=== PATIENT | female | born 1965 | race Caucasian/White ===

== ENCOUNTER 2021-09-08 14:13 | Inpatient (IN) | payer BC ==
[~2021-09-08 14:13] MED LIST: Iopamidol-370 76% 500 ML 1 ML ONE
[2021-09-08] MEDS ORDERED: Diltiazem 125 MG/25 ML ONE (14:34)
[2021-09-08] MEDS ORDERED: Magnesium 2 GM/50 ML BAG (IN WATER) ONE (15:12)
[2021-09-08 15:21] LABS: #Basophils 0.1 thou/uL (0.0-0.2); #Eosinphils 0.2 thou/uL (0.0-0.7); #Lymphocytes 1.9 thou/uL (1.20-3.40); #Monocytes 0.7 thou/uL (0.11-0.59); %Basophils 0.7 % (0.0-1.0); %Eosinophils 2.4 % (0.0-10.0); %Monocytes 8.1 % (0.0-10.0); %Neutrophils 67.7 % (42.0-75.0); Hemoglobin 15.7 g/dL (12.0-16.0); Mean Corpuscular HGB CONC 33.6 g/dL (32.0-36.0); Mean Corpuscular Volume 98.4 fL (78.0-98.0); Mean Platelet Volume 7.5 fL (7.4-10.4); Platelet Count 333 thou/uL (130-400); Red Blood Cell (RBC) Count 4.75 mill/uL (4.20-5.40); White Blood Cell (WBC) Count 8.8 thou/uL (4.8-10.8)
[2021-09-08 15:42] LABS: ALT (SGPT) 16 U/L (8-55); AST (SGOT) 16 U/L (5-34); Albumin 4.1 g/dL (3.5-5.0); Alkaline Phosphatase 49 U/L (40-110); Anion Gap 13 mmol/L (10-20); BUN (Urea Nitrogen) 17 mg/dL (9.8-20.1); Bilirubin, Total 0.7 mg/dL (0.2-1.2); Calc. Creatinine Clearance 0 mL/min (70-130); Calcium 9.6 mg/dL (7.8-10.44); Carbon Dioxide 23 mmol/L (22-29); Chloride 106 mmol/L (98-107); Globulin 3.1 g/dL (2.4-3.5); Glucose 94 mg/dL (70-105); Lipase 9 U/L (8-78); Potassium 4.3 mmol/L (3.5-5.1); Protein, Total 7.2 g/dL (6.0-8.3); Sodium 138 mmol/L (136-145)
[2021-09-08 16:03] LABS: CKMB 1.5 ng/mL (0-6.6)
[2021-09-08 16:19] LABS: SARS-CoV-2 NAA Rapid Test Not Detected (NotDetected)
[2021-09-08] MEDS ORDERED: Acetaminophen 325 MG TAB PO PRN (16:22)
[2021-09-08] MEDS ORDERED: Ondansetron PF 4 MG/2 ML Vial IVP PRN (16:22)
[2021-09-08] MEDS ORDERED: Enoxaparin Sodium 40 MG/0.4 ML SYRINGE SC SCH (16:30)
[2021-09-08] MEDS ORDERED: Aspirin 81 mg Enteric Coated Tablet PO SCH (16:30)
[2021-09-08] MEDS ORDERED: Nicotine 21 MG PATCH TD SCH (17:00)
[2021-09-08] MEDS ORDERED: Diltiazem 125 MG in Sodium Chloride 0.9% 100 ML IVPB SCH (17:00)
[2021-09-08 17:24] LABS: Acetaminophen Less than 6.0 mcg/mL (10.0-30.0); Alcohol Less than 10 mg/dL (Less than 10); Salicylate Less than 8.0 mg/dL (15.0-30.0)
[2021-09-08] MEDS ORDERED: hydrALAZINE 20 MG/ML VIAL SLOW IVP PRN (17:32)
[2021-09-08 18:24] LABS: Troponin I 0.029 ng/mL (< 0.028)
[2021-09-08] MEDS: Famotidine 20 MG TAB PO SCH (21:11)
[2021-09-08] MEDS: Metoprolol Tartrate 25 MG TAB PO SCH (21:11)
[2021-09-08 21:14] LABS: Troponin I 0.054 ng/mL (< 0.028)
[2021-09-08] MEDS ORDERED: Sucralfate 1 GM TAB PO SCH (23:30)
[2021-09-09 00:09] LABS: Bacteria/HPF None Seen HPF (None Seen); Bilirubin Negative (Negative); Blood, Urine Negative (Negative); Clarity Clear (Clear); Glucose, Urine (Dipstick) Normal (Negative); Ketone, Urine Negative (Negative); Leukocyte Negative Leu/uL (Negative); Nitrite Negative (Negative); Protein, Urine (Dipstick) Negative (Neg-Trace); RBC/HPF 0-3 HPF (0-3); Specific Gravity, Urine 1.012 (1.002-1.036); Squamous Epithelial 0-3 HPF (0-3); Urobilinogen Normal mg/dL (Less than 2); WBC/HPF 0-3 HPF (0-3); pH, Urine 5.5 (5.0-9.0)
[2021-09-09 05:02] LABS: #Basophils 0.1 thou/uL (0.0-0.2); #Eosinphils 0.3 thou/uL (0.0-0.7); #Lymphocytes 1.7 thou/uL (1.20-3.40); #Monocytes 0.8 thou/uL (0.11-0.59); #Neutrophils 6.4 thou/uL (1.40-6.50); %Basophils 0.6 % (0.0-1.0); %Eosinophils 3.3 % (0.0-10.0); %Lymphocytes 18.2 % (21.0-51.0); %Monocytes 8.2 % (0.0-10.0); %Neutrophils 69.7 % (42.0-75.0); Hemoglobin 13.4 g/dL (12.0-16.0); Mean Corpuscular HGB CONC 33.2 g/dL (32.0-36.0); Mean Corpuscular Volume 99.3 fL (78.0-98.0); Mean Platelet Volume 7.7 fL (7.4-10.4); Platelet Count 310 thou/uL (130-400); Red Blood Cell (RBC) Count 4.07 mill/uL (4.20-5.40); White Blood Cell (WBC) Count 9.2 thou/uL (4.8-10.8)
[2021-09-09 05:21] LABS: Anion Gap 13 mmol/L (10-20); BUN (Urea Nitrogen) 13 mg/dL (9.8-20.1); Calc. Creatinine Clearance 126 mL/min (70-130); Carbon Dioxide 20 mmol/L (22-29); Chloride 108 mmol/L (98-107); Glucose 95 mg/dL (70-105); Magnesium 1.9 mg/dL (1.6-2.6); Sodium 137 mmol/L (136-145)
[2021-09-09] MEDS ORDERED: Enoxaparin Sodium 40 MG/0.4 ML SYRINGE SC SCH (09:00)
[2021-09-09] MEDS ORDERED: Melatonin 3 MG TAB PO PRN (09:20)
[2021-09-09] MEDS ORDERED: Pantoprazole 40 MG VIAL IVP SCH (09:30)
[2021-09-09] MEDS: Aspirin 81 mg Enteric Coated Tablet PO SCH (09:45)
[2021-09-09] MEDS: Lorazepam 0.5 MG TAB PO PRN ×2 (09:45→20:45)
[2021-09-09] MEDS: Metoprolol Tartrate 25 MG TAB PO SCH ×2 (09:45→20:40)
[2021-09-09] MEDS: Famotidine 20 MG TAB PO SCH ×2 (11:45→20:39)
[2021-09-09] MEDS ORDERED: Communication Order-Pharmacy FS SCH (17:45)
[2021-09-09] MEDS ORDERED: Digoxin 0.5 MG/2 ML AMP SLOW IVP SCH (17:45)
[2021-09-09] MEDS ORDERED: Nicotine 21 MG PATCH TD SCH (21:00)
[2021-09-10 05:44] LABS: Cardiac Risk 7.8 (Less than 4.5)
[2021-09-10] MEDS: Aspirin 81 mg Enteric Coated Tablet PO SCH (05:57)
[2021-09-10] MEDS: Famotidine 20 MG TAB PO SCH ×2 (05:57→20:02)
[2021-09-10] MEDS: Metoprolol Tartrate 25 MG TAB PO SCH ×2 (05:57→20:03)
[2021-09-10] MEDS ORDERED: Sodium Chloride 0.9% 1,000 ML IV SCH (06:00)
[2021-09-10] MEDS ORDERED: Heparin 10,000 UNITS/ 10 ML VIAL ONE (06:35)
[2021-09-10] MEDS ORDERED: Lidocaine 1% (PF) 30 ML VIAL ONE (07:11)
[2021-09-10] MEDS ORDERED: Fentanyl 100 MCG/2 ML VIAL ONE (07:14)
[2021-09-10] MEDS ORDERED: Midazolam HCl 2 mg/2 ml Vial ONE (07:14)
[2021-09-10] MEDS ORDERED: Digoxin 0.5 MG/2 ML AMP ONE (07:41)
[2021-09-10] MEDS ORDERED: Protamine Sulfate 50 MG/5 ML VIAL ONE (07:41)
[2021-09-10] MEDS ORDERED: Nitroglycerin 0.4 MG TAB (25 Tab Bottle) SL PRN (08:02)
[2021-09-10] MEDS ORDERED: Sodium Chloride 0.9% 200 ML IV PRN (08:02)
[2021-09-10] MEDS ORDERED: Acetaminophen/Codeine 30-300mg Tablet PO PRN ×2 (08:02)
[2021-09-10] MEDS: Sodium Chloride 0.9% 1,000 ML IV SCH ×3 (09:50→20:08)
[2021-09-10] MEDS ORDERED: Amiodarone 200 MG TAB PO SCH (10:30)
[2021-09-10] MEDS ORDERED: Iopamidol 370 76% 50 ML VIAL FS ONE (14:07)
[2021-09-10] MEDS ORDERED: Iopamidol 370 76% 100 ML VIAL ONE (14:07)
[2021-09-10] MEDS: Diltiazem 125 MG in Sodium Chloride 0.9% 100 ML IVPB SCH (14:23)
[2021-09-10] MEDS: Lorazepam 0.5 MG TAB PO PRN (20:02)
[2021-09-10] MEDS: Atorvastatin Calcium 40 MG TAB PO SCH (20:02)
[2021-09-10] MEDS: Amiodarone 200 MG TAB PO SCH (20:04)
[2021-09-11] MEDS ORDERED: ceFAZolin 2 GM/Dextrose 50 ML 2 GM in Premix Bag 1 BAG IVPB SCH (04:00)
[2021-09-11] MEDS: Sodium Chloride 0.9% 1,000 ML IV SCH (04:41)
[2021-09-11] MEDS: Metoprolol Tartrate 25 MG TAB PO SCH (05:39)
[2021-09-11] MEDS ORDERED: Midazolam HCl 5 mg/5 ml Vial ONE (07:10)
[2021-09-11] MEDS ORDERED: Fentanyl 250 MCG/5 ML VIAL ONE (07:10)
[2021-09-11] MEDS: Diltiazem 125 MG in Sodium Chloride 0.9% 100 ML IVPB SCH (07:15)
[2021-09-11] MEDS: Amiodarone 200 MG TAB PO SCH ×2 (07:57→20:20)
[2021-09-11] MEDS ORDERED: Communication Order-Pharmacy FS SCH (08:17)
[2021-09-11] MEDS ORDERED: ceFAZolin 2 GM/DEX 5% 100 ML BAG ONE (08:30)
[2021-09-11] MEDS ORDERED: Albuterol Sulfate 1.25 MG/3 ML NEB ONE (08:38)
[2021-09-11] MEDS ORDERED: Ipratropium Bromide 2.5 ml Neb ONE (08:39)
[2021-09-11] MEDS ORDERED: Lidocaine 1% MPF 2 ML VIAL ONE (08:57)
[2021-09-11] MEDS ORDERED: Albumin 5% 500 ML ONE (09:12)
[2021-09-11] MEDS ORDERED: Sodium Chloride 0.9% 50 ML ONE (09:16)
[2021-09-11] MEDS ORDERED: Midazolam HCl 2 mg/2 ml Vial ONE (09:50)
[2021-09-11] MEDS ORDERED: Heparin 10,000 UNITS/1 ML VIAL 30,000 UNITS in Sodium Chloride 0.9% 1,000 ML FS SCH (10:15)
[2021-09-11] MEDS ORDERED: Levofloxacin 500 mg/D5W 100 ml Premix Bag ONE (10:42)
[2021-09-11] MEDS ORDERED: PROPOFOL 200 MG/20 ML VIAL ONE (10:45)
[2021-09-11] MEDS ORDERED: Lidocaine 2% PF 100 mg/5 ml Syringe ONE (10:45)
[2021-09-11] MEDS ORDERED: Vecuronium 10 MG VIAL ONE (10:45)
[2021-09-11] MEDS ORDERED: Potassium Chloride 60 MEQ/30 ML VIAL ONE (10:45)
[2021-09-11] MEDS ORDERED: Protamine Sulfate 250 MG/25 ML VIAL ONE (10:45)
[2021-09-11] MEDS ORDERED: Thrombin 5000 UNITS/5 ML VIAL ONE (10:45)
[2021-09-11] MEDS ORDERED: Aminocaproic Acid 5 GM/20 ML VIAL ONE (10:45)
[2021-09-11] MEDS ORDERED: Calcium Chloride 1 GM/10 ML Abboject SYRINGE ONE (10:45)
[2021-09-11] MEDS ORDERED: Cardioplegic Soln 1,000 ML BAG ONE (10:45)
[2021-09-11] MEDS ORDERED: Papaverine 60 MG/2 ML VIAL ONE (10:45)
[2021-09-11] MEDS ORDERED: Sodium Bicarb 50 MEQ/50 ML Abboject 8.4% SYRINGE ONE (10:45)
[2021-09-11] MEDS ORDERED: Lidocaine 1% PF 5 ML VIAL ONE (10:45)
[2021-09-11] MEDS ORDERED: Heparin 5,000 UNITS/ML VIAL ONE (10:45)
[2021-09-11] MEDS ORDERED: Magnesium Sulfate 1 GM/2 ML VIAL ONE (10:45)
[2021-09-11] MEDS ORDERED: Heparin 30,000 units/30 ml VIAL ONE (10:45)
[2021-09-11] MEDS ORDERED: hydrALAZINE 20 MG/ML VIAL SLOW IVP PRN (14:14)
[2021-09-11] MEDS ORDERED: Nitroglycerin 50 MG/250 ML BOT 250 ML IVPB PRN (14:14)
[2021-09-11] MEDS ORDERED: Post-Op Insulin Drip Protocol IVPB ONE (14:14)
[2021-09-11] MEDS ORDERED: Bisacodyl 5 MG TAB PO PRN (14:14)
[2021-09-11] MEDS ORDERED: Promethazine HCl 25 MG/ML VIAL IM PRN (14:14)
[2021-09-11] MEDS ORDERED: Acetaminophen 325 MG TAB PO PRN (14:14)
[2021-09-11] MEDS ORDERED: Bisacodyl 10 MG SUPP PR PRN (14:14)
[2021-09-11] MEDS ORDERED: HYDROcodone/Acetaminophen 5/325 mg Tablet PO PRN (14:14)
[2021-09-11] MEDS ORDERED: Guaifenesin DM 100-10/5 ML UDCUP PO PRN (14:14)
[2021-09-11] MEDS ORDERED: DOPamine 400 MG/D5W 250 ML 250 ML IVPB PRN (14:14)
[2021-09-11] MEDS ORDERED: Hetastarch 6% 500 ML 500 ML IVPB PRN (14:14)
[2021-09-11] MEDS ORDERED: niCARdipine 25 MG in Sodium Chloride 0.9% 250 ML 250 ML IVPB PRN (14:14)
[2021-09-11] MEDS ORDERED: Potassium Chloride 20 MEQ/100 ML PREMIX BAG IVPB PRN (14:14)
[2021-09-11] MEDS: Lactated Ringer's 1,000 ML IV SCH (14:30)
[2021-09-11] MEDS ORDERED: Morphine 4 MG/ML VIAL ONE (14:35)
[2021-09-11] MEDS ORDERED: Nitroglycerin 50 MG/250 ML BOT 250 ML ONE (14:40)
[2021-09-11 14:43] LABS: #Eosinphils 0.3 thou/uL (0.0-0.7); #Lymphocytes 1.6 thou/uL (1.20-3.40); #Neutrophils 15.9 thou/uL (1.40-6.50); %Basophils 0.2 % (0.0-1.0); %Eosinophils 1.4 % (0.0-10.0); %Lymphocytes 8.3 % (21.0-51.0); %Monocytes 5.3 % (0.0-10.0); %Neutrophils 84.8 % (42.0-75.0); Hemoglobin 11.2 g/dL (12.0-16.0); Mean Corpuscular HGB CONC 33.2 g/dL (32.0-36.0); Mean Corpuscular Volume 99.3 fL (78.0-98.0); Platelet Count 204 thou/uL (130-400); RBC Distribution Width 11.7 % (11.5-14.5); White Blood Cell (WBC) Count 18.7 thou/uL (4.8-10.8)
[2021-09-11 14:50] LABS: INR-International Normal Ratio 1.3; PTT 34.5 sec (22.9-36.1); Prothrombin Time 16.8 sec (12.0-14.7)
[2021-09-11 14:53] LABS: Actual Bicarbonate (HCO3a) 19.9 mEq/L (22-28); Base Excess (BEa) -5.7 mEq/L (-2.0 to +3.0); CO2 Tension 39.6 mmHg (35.0-45.0); Carboxyhemoglobin (COHb) 0.3 gm% (0.0-3.0); Hemoglobin (Hb) 11.6 g/dL (12.0-16.0); O2 Tension (PaO2), arterial 140.2 mmHg (80.0-100.0); pH, Arterial 7.32 (7.35-7.45)
[2021-09-11 14:54] LABS: Calcium, Ionized (arterial) 1.12 mmol/L (1.12-1.30); Puncture Site Arterial Line
[2021-09-11 15:07] LABS: Anion Gap 9 mmol/L (10-20); BUN (Urea Nitrogen) 12 mg/dL (9.8-20.1); Calc. Creatinine Clearance 128 mL/min (70-130); Calcium 7.7 mg/dL (7.8-10.44); Carbon Dioxide 21 mmol/L (22-29); Chloride 114 mmol/L (98-107); Glucose 154 mg/dL (70-105); Potassium 4.1 mmol/L (3.5-5.1); Sodium 140 mmol/L (136-145)
[2021-09-11] MEDS ORDERED: Morphine 4 MG/ML VIAL SLOW IVP PRN (15:53)
[2021-09-11] MEDS: Fentanyl 100 MCG/2 ML VIAL SLOW IVP PRN ×2 (16:15→21:30)
[2021-09-11] MEDS ORDERED: Dextrose 5% in Water 1,000 ML IV PRN (16:45)
[2021-09-11] MEDS ORDERED: Lantus 1000 UNITS/10 ML VIAL SC PRN (16:45)
[2021-09-11] MEDS ORDERED: Dextrose 50% Abboject 50 ML SYRINGE SLOW IVP PRN (16:45)
[2021-09-11] MEDS ORDERED: Insulin Regular 300 UNITS/3 ML VIAL SC PRN (16:45)
[2021-09-11] MEDS ORDERED: HUMULIN R 100 UNITS in Sodium Chloride 0.9% 100 ML IVPB SCH (16:45)
[2021-09-11 16:54] LABS: Actual Bicarbonate (HCO3a) 19.2 mEq/L (22-28); Base Excess (BEa) -4.8 mEq/L (-2.0 to +3.0); CO2 Tension 32.2 mmHg (35.0-45.0); Calcium, Ionized (arterial) 1.09 mmol/L (1.12-1.30); Carboxyhemoglobin (COHb) 0.3 gm% (0.0-3.0); Hemoglobin (Hb) 12.7 g/dL (12.0-16.0); O2 Tension (PaO2), arterial 77.9 mmHg (80.0-100.0); Potassium - ABG Lab 4.01 mmol/L (3.70-5.30); pH, Arterial 7.39 (7.35-7.45)
[2021-09-11 16:56] LABS: Puncture Site Arterial Line
[2021-09-11] MEDS: Ketorolac Tromethamine 30 MG/ML VIAL IVP SCH (17:22)
[2021-09-11] MEDS: HYDROcodone/Acetaminophen 5/325 mg Tablet PO PRN (18:14)
[2021-09-11 20:19] LABS: Hemoglobin 11.7 g/dL (12.0-16.0)
[2021-09-11] MEDS: Atorvastatin Calcium 40 MG TAB PO SCH (20:20)
[2021-09-11 20:34] LABS: Potassium 4.3 mmol/L (3.5-5.1)
[2021-09-11] MEDS ORDERED: Famotidine/PF 20 mg/2ml Vial SLOW IVP SCH (21:00)
[2021-09-12] MEDS: Ketorolac Tromethamine 30 MG/ML VIAL IVP SCH ×4 (00:08→16:58)
[2021-09-12] MEDS: Fentanyl 100 MCG/2 ML VIAL SLOW IVP PRN ×4 (03:15→23:41)
[2021-09-12] MEDS: Lactated Ringer's 1,000 ML IV SCH (03:27)
[2021-09-12 04:04] LABS: #Lymphocytes 1.4 thou/uL (1.20-3.40); #Monocytes 0.8 thou/uL (0.11-0.59); #Neutrophils 9.2 thou/uL (1.40-6.50); %Basophils 0.1 % (0.0-1.0); %Eosinophils 0.3 % (0.0-10.0); %Lymphocytes 12.2 % (21.0-51.0); %Monocytes 6.8 % (0.0-10.0); %Neutrophils 80.6 % (42.0-75.0); Hemoglobin 10.8 g/dL (12.0-16.0); Mean Corpuscular HGB CONC 33.5 g/dL (32.0-36.0); Mean Corpuscular Hemoglobin 33.4 pg (27.0-31.0); Mean Corpuscular Volume 99.8 fL (78.0-98.0); Mean Platelet Volume 7.6 fL (7.4-10.4); Platelet Count 221 thou/uL (130-400); RBC Distribution Width 11.7 % (11.5-14.5); Red Blood Cell (RBC) Count 3.24 mill/uL (4.20-5.40); White Blood Cell (WBC) Count 11.3 thou/uL (4.8-10.8)
[2021-09-12 04:18] LABS: Anion Gap 11 mmol/L (10-20); BUN (Urea Nitrogen) 13 mg/dL (9.8-20.1); Calc. Creatinine Clearance 134 mL/min (70-130); Calcium 7.9 mg/dL (7.8-10.44); Carbon Dioxide 23 mmol/L (22-29); Chloride 107 mmol/L (98-107); Glucose 91 mg/dL (70-105); Sodium 137 mmol/L (136-145)
[2021-09-12] MEDS: HYDROcodone/Acetaminophen 5/325 mg Tablet PO PRN (04:53)
[2021-09-12] MEDS: Ondansetron PF 4 MG/2 ML Vial IVP PRN ×3 (04:57→15:30)
[2021-09-12] MEDS ORDERED: Mineral Oil ENEMA PR PRN (07:45)
[2021-09-12] MEDS ORDERED: diphenhydrAMINE 25 MG CAP PO PRN (07:45)
[2021-09-12] MEDS: Potassium Chloride 10 MEQ TAB PO SCH (08:50)
[2021-09-12] MEDS: Amiodarone 200 MG TAB PO SCH ×2 (09:17→21:08)
[2021-09-12] MEDS: Aspirin 325 MG TAB PO SCH (09:17)
[2021-09-12] MEDS: Polyethylene Glycol 3350 17 GM Packet PO SCH (11:31)
[2021-09-12] MEDS: Carvedilol 3.125 MG TAB PO SCH (16:58)
[2021-09-12] MEDS: Calcium Carbonate 500 MG ChewTAB PO PRN (18:15)
[2021-09-12] MEDS: Nitroglycerin 0.4 MG TAB (25 Tab Bottle) SL PRN ×2 (18:58→20:19)
[2021-09-12] MEDS: Atorvastatin Calcium 40 MG TAB PO SCH (21:09)
[2021-09-12] MEDS: Mag-Al 1200 mg/1200 mg/30 ML UDCUP PO PRN (21:09)
[2021-09-12] MEDS ORDERED: Digoxin 0.5 MG/2 ML AMP SLOW IVP SCH (23:30)
[2021-09-13] MEDS: Fentanyl 100 MCG/2 ML VIAL SLOW IVP PRN ×4 (01:56→11:23)
[2021-09-13] MEDS: HYDROcodone/Acetaminophen 5/325 mg Tablet PO PRN ×3 (05:01→19:26)
[2021-09-13 05:46] LABS: #Eosinphils 0.1 thou/uL (0.0-0.7); #Lymphocytes 1.2 thou/uL (1.20-3.40); #Monocytes 1.3 thou/uL (0.11-0.59); #Neutrophils 12.2 thou/uL (1.40-6.50); %Basophils 0.2 % (0.0-1.0); %Eosinophils 0.4 % (0.0-10.0); %Lymphocytes 7.9 % (21.0-51.0); %Monocytes 8.7 % (0.0-10.0); %Neutrophils 82.8 % (42.0-75.0); Hemoglobin 11.3 g/dL (12.0-16.0); Mean Corpuscular HGB CONC 34.2 g/dL (32.0-36.0); Mean Corpuscular Hemoglobin 33.7 pg (27.0-31.0); Mean Corpuscular Volume 98.4 fL (78.0-98.0); Mean Platelet Volume 7.8 fL (7.4-10.4); Platelet Count 234 thou/uL (130-400); RBC Distribution Width 11.7 % (11.5-14.5); Red Blood Cell (RBC) Count 3.36 mill/uL (4.20-5.40); White Blood Cell (WBC) Count 14.8 thou/uL (4.8-10.8)
[2021-09-13 06:05] LABS: Anion Gap 14 mmol/L (10-20); BUN (Urea Nitrogen) 16 mg/dL (9.8-20.1); Calc. Creatinine Clearance 125 mL/min (70-130); Calcium 8.1 mg/dL (7.8-10.44); Carbon Dioxide 20 mmol/L (22-29); Chloride 104 mmol/L (98-107); Glucose 102 mg/dL (70-105); Potassium 4.3 mmol/L (3.5-5.1); Sodium 134 mmol/L (136-145)
[2021-09-13] MEDS: Aspirin 325 MG TAB PO SCH (07:50)
[2021-09-13] MEDS: Polyethylene Glycol 3350 17 GM Packet PO SCH (07:51)
[2021-09-13] MEDS: Carvedilol 3.125 MG TAB PO SCH ×2 (07:51→17:26)
[2021-09-13] MEDS: Amiodarone 200 MG TAB PO SCH (07:51)
[2021-09-13] MEDS: Potassium Chloride 10 MEQ TAB PO SCH (07:51)
[2021-09-13] MEDS: Furosemide 40 MG TAB PO SCH (07:51)
[2021-09-13] MEDS: Calcium Carbonate 500 MG ChewTAB PO PRN ×2 (13:11→20:32)
[2021-09-13] MEDS ORDERED: Amiodarone 150 MG in Dextrose 5% in Water 100 ML IVPB SCH (16:30)
[2021-09-13] MEDS: Amiodarone 450 MG in Dextrose 5% in Water 250 ML IVPB SCH (17:38)
[2021-09-13] MEDS: Atorvastatin Calcium 40 MG TAB PO SCH (20:32)
[2021-09-13] MEDS: Ondansetron PF 4 MG/2 ML Vial IVP PRN (20:32)
[2021-09-14] MEDS: Amiodarone 450 MG in Dextrose 5% in Water 250 ML IVPB SCH ×2 (00:53→11:06)
[2021-09-14 05:38] LABS: #Eosinphils 0.2 thou/uL (0.0-0.7); #Lymphocytes 1.3 thou/uL (1.20-3.40); #Monocytes 1.2 thou/uL (0.11-0.59); #Neutrophils 10.7 thou/uL (1.40-6.50); %Basophils 0.2 % (0.0-1.0); %Eosinophils 1.3 % (0.0-10.0); %Lymphocytes 9.5 % (21.0-51.0); %Monocytes 8.8 % (0.0-10.0); %Neutrophils 80.3 % (42.0-75.0); Hemoglobin 11.2 g/dL (12.0-16.0); Mean Corpuscular HGB CONC 32.3 g/dL (32.0-36.0); Mean Corpuscular Hemoglobin 32.5 pg (27.0-31.0); Mean Platelet Volume 8.4 fL (7.4-10.4); Platelet Count 268 thou/uL (130-400); RBC Distribution Width 11.7 % (11.5-14.5); Red Blood Cell (RBC) Count 3.44 mill/uL (4.20-5.40); White Blood Cell (WBC) Count 13.3 thou/uL (4.8-10.8)
[2021-09-14 05:53] LABS: Anion Gap 14 mmol/L (10-20); BUN (Urea Nitrogen) 19 mg/dL (9.8-20.1); Calc. Creatinine Clearance 119 mL/min (70-130); Carbon Dioxide 21 mmol/L (22-29); Chloride 103 mmol/L (98-107); Glucose 110 mg/dL (70-105); Potassium 4.4 mmol/L (3.5-5.1); Sodium 134 mmol/L (136-145)
[2021-09-14] MEDS: HYDROcodone/Acetaminophen 5/325 mg Tablet PO PRN (06:07)
[2021-09-14] MEDS ORDERED: traMADol HCl 50 MG TAB PO PRN (06:54)
[2021-09-14] MEDS: Aspirin 325 MG TAB PO SCH (08:05)
[2021-09-14] MEDS: Potassium Chloride 10 MEQ TAB PO SCH (08:05)
[2021-09-14] MEDS: Furosemide 40 MG TAB PO SCH (08:05)
[2021-09-14] MEDS: Carvedilol 3.125 MG TAB PO SCH ×2 (08:05→17:26)
[2021-09-14] MEDS: Ondansetron PF 4 MG/2 ML Vial IVP PRN (08:07)
[2021-09-14] MEDS: Ketorolac Tromethamine 30 MG/ML VIAL IVP PRN ×2 (08:11→20:21)
[2021-09-14] MEDS: Polyethylene Glycol 3350 17 GM Packet PO SCH (08:20)
[2021-09-14] MEDS ORDERED: Promethazine HCl 25 MG in Sodium Chloride 0.9% 50 ML IVPB SCH (13:30)
[2021-09-14] MEDS: Atorvastatin Calcium 40 MG TAB PO SCH (20:21)
[2021-09-14] MEDS: Amiodarone 200 MG TAB PO SCH (20:21)
[2021-09-14] MEDS: Calcium Carbonate 500 MG ChewTAB PO PRN (20:30)
[2021-09-15] MEDS: Ketorolac Tromethamine 30 MG/ML VIAL IVP PRN ×2 (03:59→22:15)
[2021-09-15] MEDS: Mag-Al 1200 mg/1200 mg/30 ML UDCUP PO PRN (04:08)
[2021-09-15] MEDS: Furosemide 40 MG TAB PO SCH ×2 (08:24→15:22)
[2021-09-15] MEDS: Potassium Chloride 10 MEQ TAB PO SCH ×2 (08:24→17:36)
[2021-09-15] MEDS: Amiodarone 200 MG TAB PO SCH ×2 (08:24→19:35)
[2021-09-15] MEDS: Carvedilol 3.125 MG TAB PO SCH ×2 (08:24→17:36)
[2021-09-15] MEDS: Aspirin 325 MG TAB PO SCH (08:24)
[2021-09-15] MEDS: Polyethylene Glycol 3350 17 GM Packet PO SCH ×2 (08:25→11:35)
[2021-09-15] MEDS ORDERED: Carvedilol 3.125 MG TAB PO SCH ×2 (09:45→10:30)
[2021-09-15] MEDS ORDERED: Lisinopril 5 MG TAB PO SCH (09:45)
[2021-09-15] MEDS: Atorvastatin Calcium 40 MG TAB PO SCH (19:36)
[2021-09-16] MEDS: Aspirin 325 MG TAB PO SCH (08:32)
[2021-09-16] MEDS: Polyethylene Glycol 3350 17 GM Packet PO SCH (08:32)
[2021-09-16] MEDS: Amiodarone 200 MG TAB PO SCH (08:32)
[2021-09-16] MEDS: Furosemide 40 MG TAB PO SCH ×2 (08:32→15:31)
[2021-09-16] MEDS: Potassium Chloride 10 MEQ TAB PO SCH (08:32)
[2021-09-16] MEDS: Carvedilol 3.125 MG TAB PO SCH (08:32)
[2021-09-16 08:55] VITALS: BMI 33.8
[2021-09-16] MEDS ORDERED: Carvedilol 3.125 MG TAB PO SCH (09:00)
[2021-09-16] MEDS ORDERED: Lisinopril 5 MG TAB PO SCH (09:00)
[2021-09-16 11:53] VITALS: BP 100/66; TEMP 98.2
[2021-09-16 15:28] LABS: SARS-CoV-2 PCR by NAA Not Detected (NotDetected)
[2021-09-16] MEDS ORDERED: Carvedilol 6.25 MG TAB PO SCH (17:00)
== END 2021-09-16 15:30 | disposition home or self-care (01) | DRG 234 ==
LOC: ERS 14:13 → 2NO 16:09 → CCU 09-11 10:16 → 2NO 09-12 14:04
PROVIDERS: ADMIT Internal Medicine; ATTEND Internal Medicine
PROC: 4A023N7 Measurement of Cardiac Sampling and Pressure, Left Heart, Percutaneous Approach (ICD-10-PCS; principal; 2021-09-10)
PROC: B2111ZZ Fluoroscopy of Multiple Coronary Arteries using Low Osmolar Contrast (ICD-10-PCS; 2021-09-10)
PROC: B2151ZZ Fluoroscopy of Left Heart using Low Osmolar Contrast (ICD-10-PCS; 2021-09-10)
PROC: 4A033BC Measurement of Arterial Pressure, Coronary, Percutaneous Approach (ICD-10-PCS; 2021-09-10)
PROC: 02100Z9 Bypass Coronary Artery, One Artery from Left Internal Mammary, Open Approach (ICD-10-PCS; 2021-09-11)
PROC: 021209W Bypass Coronary Artery, Three Arteries from Aorta with Autologous Venous Tissue, Open Approach (ICD-10-PCS; 2021-09-11)
PROC: 02580ZZ Destruction of Conduction Mechanism, Open Approach (ICD-10-PCS; 2021-09-11)
PROC: 06BP4ZZ Excision of Right Saphenous Vein, Percutaneous Endoscopic Approach (ICD-10-PCS; 2021-09-11)
PROC: 5A1221Z Performance of Cardiac Output, Continuous (ICD-10-PCS; 2021-09-11)
PROC: 02L70CK Occlusion of Left Atrial Appendage with Extraluminal Device, Open Approach (ICD-10-PCS; 2021-09-11)
DX: I21.4 Non-ST elevation (NSTEMI) myocardial infarction (principal); E87.1 Hypo-osmolality and hyponatremia; I42.9 Cardiomyopathy, unspecified; I25.10 Atherosclerotic heart disease of native coronary artery without angina pectoris; Z20.822 Contact with and (suspected) exposure to COVID-19; I10 Essential (primary) hypertension; F41.9 Anxiety disorder, unspecified; F17.210 Nicotine dependence, cigarettes, uncomplicated; I48.0 Paroxysmal atrial fibrillation; E66.9 Obesity, unspecified; E78.5 Hyperlipidemia, unspecified; I08.1 Rheumatic disorders of both mitral and tricuspid valves; Z88.0 Allergy status to penicillin; Z68.33 Body mass index [BMI] 33.0-33.9, adult; Z91.14 Patient's other noncompliance with medication regimen
CPT/HCPCS: 36415; 36416; 36430; 71045; 71275; 80048; 80053; 80061; 80307; 81001; 82553; 82805; 83690; 83735; 84443; 84484; 85025; 85347; 85610; 85730; 86850; 86900; 86901; 87040; 93005; 93010; 93306; 93458; 93798; 94002; 94150; 94760; 96365; 96366; 96375; 99152; 99292; C1776; C9113; J0282; J1160; J1642; J1644; J1650; J1815; J1885; J1956; J2001; J2250; J2270; J2405; J2440; J2550; J2704; J2720; J3010; J3370; J3475; J3480; J3490; J7050; J7070; J7120; J7620; P9045; Q9967; S0017; S0028; U0002; U0003; U0005